=== PATIENT | female | born 1985 | race Caucasian/White ===

== ENCOUNTER 2017-11-16 17:23 | Emergency (ER) | payer OTHER ==
[~2017-11-16] VITALS: Ht 167.6 cm; Wt 110.2 kg
[2017-11-16 18:27] LABS: HEMATOCRIT 39.8 % (36.0-46.0); MCH 28.3 PG (29.0-34.0); MCHC 32.7 G/DL (30.0-36.0); MCV 86.5 FL (83-99); PLATELET COUNT 378 K/uL (156-360); RBC DIS.WIDTH-CV 13.1 % (11.8-14.6); RBC DIS.WIDTH-SD 40.8 % (39-53); WHITE BLOOD COUNT 9.2 K/uL (4.1-10.2)
[2017-11-16 18:38] LABS: CHLORIDE 106 mEq/L (99-109); POTASSIUM 3.7 mEq/L (3.7-5.4); SODIUM 137 mEq/L (136-147)
[2017-11-16 18:40] LABS: GLUCOSE 117 mg/dL (70-99)
[2017-11-16 18:44] LABS: CREATININE 0.9 mg/dL (0.6-1.3); GFR ESTIMATE (CALCULATED) > 59 mL/min/
[2017-11-16 18:45] LABS: UREA NITROGEN (BUN) 12 mg/dL (9-23)
[2017-11-16 18:45] LABS: COLOR ORANGE ((YELLOW))
[2017-11-16 18:46] LABS: APPEARANCE HAZY ((CLEAR)); BLOOD MODERATE; GLUCOSE (STRIP) NEGATIVE; SPECIFIC GRAVITY 1.029 (1.000-1.030)
[2017-11-16 18:56] LABS: QUANTITATIVE HCG < 4.0 MIU/ML
[2017-11-16 19:00] LABS: EPITHELIAL CELLS 2+ /HPF; MUCUS 2+ /LPF
[2017-11-16 19:01] LABS: RED BLOOD CELLS TNTC /HPF (0-5)
[2017-11-16 19:02] LABS: UCUL ADDED? YES
[2017-11-16 19:03] LABS: BACTERIA 2+ /HPF
[2017-11-16] MEDS ORDERED: CIPRO500 MG PO (21:01)
[2017-11-16] MEDS ORDERED: TORADOL10 MG PO (21:01)
[2017-11-16 21:11] VITALS: BP 142/84
== END 2017-11-16 21:11 | disposition home or self-care (01) ==
LOC: EME 17:23
DX: N39.0 Urinary tract infection, site not specified (principal); Z91.040 Latex allergy status
CPT/HCPCS: 74176; 80048; 81003; 84702; 85027; 87086; 99281; 99284